=== PATIENT | female | born 1955 | race Two or more races ===

== ENCOUNTER 2022-12-09 21:21 | Emergency (ER) | payer MEDICARE ==
[~2022-12-09] VITALS: Ht 152.4 cm; Wt 63.5 kg
--- NOTE | 2022-12-09 22:00 | NUR ---
PT IN BED 8 BREATHING IS UNLABORED A/OX4. C/O NON STOP COUGHING STARTED 2 WEEKS AGO. HOME COVID TEST SHOWED NEGATIVE. PT IS EXPERINCING FATIGUE, NO APPITITE. DAUGHTER AT BED SIDE FOR TRANSLATION PT ONLY SPEAKS UYGHUR. BED LOCKED IN LOWEST POSITION PT CONNECTED TO O2SAT PROBE,
--- NOTE | 2022-12-09 22:20 | NUR ---
IN ROOM FOR EVAL.
--- NOTE | 2022-12-09 22:21 | NUR ---
DAUGHTER AT BEDSIDE FOR TRANSALTION SPEAKS UYGHUR
--- NOTE | 2022-12-09 22:47 | NUR ---
PT MEDS OLMESARTAN 40MG JANUMET ROSUVASTATIN 20MG
--- NOTE | 2022-12-09 22:48 | NUR ---
XRAY DONE AT BEDSIDE
[2022-12-09] MEDS ORDERED: BENZ-13 PO (23:48)
[2022-12-09] MEDS ORDERED: AZIT250T13 PO (23:48)
[2022-12-09 23:59] VITALS: BP 132/89
--- NOTE | 2022-12-09 23:59 | NUR ---
PT OK TO DISCHARGE PER DR COWART. Patient discharged to home in stable condition. Written and verbal after care instructions given. Patient verbalizes understanding of instruction.Patient is awake and alert to self, day, and place. PT ambulatory with a steady gait
== END 2022-12-09 23:59 | disposition home or self-care (01) ==
LOC: ER 21:23
DX: J18.9 Pneumonia, unspecified organism (principal); I10 Essential (primary) hypertension; E11.9 Type 2 diabetes mellitus without complications; Z79.899 Other long term (current) drug therapy
CPT/HCPCS: 71045-TC